=== PATIENT | male | born 1970 | race Caucasian/White ===

== ENCOUNTER 2017-04-25 10:15 | Emergency (ER) | payer MEDICARE ==
[~2017-04-25] VITALS: Ht 172.7 cm; Wt 84.8 kg
[2017-04-25 10:30] VITALS: BP_SYST 151
[2017-04-25] MEDS ORDERED: LIDOCAINE/EPI 2% 1:100000 20 ML VIAL INJ ONE (10:45)
[2017-04-25] MEDS ORDERED: HYDROcodone/ACETAMIN 5-325 MG TAB (NORCO/ VICODIN) PO ONE (10:45)
[2017-04-25] MEDS ORDERED: CEFAZOLIN 1 GM IVPB PREMIX 50 ML IV ONE (10:45)
[2017-04-25] MEDS ORDERED: LIDOCAINE/PRILOCAINE 5 GM CREAM (EMLA) TP ONE (10:45)
[2017-04-25] MEDS ORDERED: VANCOMYCIN HCL 1,000 MG in NS 250 ML IV ONE (10:45)
[2017-04-25 11:18] LABS: BASOPHILS # (AUTO) 0.1 K/uL (0.0-0.2); BASOPHILS % (AUTO) 1.2 % (0.0-2.0); EOSINOPHILS # (AUTO) 0.1 K/uL (0.0-0.4); EOSINOPHILS % (AUTO) 1.5 % (0.0-4.0); HEMATOCRIT 44.8 % (36-54); HEMOGLOBIN 13.9 g/dL (14.0-18.0); LYMPHOCYTES # (AUTO) 1.7 K/uL (1.0-5.5); LYMPHOCYTES % (AUTO) 19.3 % (20.5-51.5); MEAN CORPUSCULAR HEMOGLOBIN 26 pg (27-31); MEAN CORPUSCULAR HGB CONC 31 % (32-36); MEAN CORPUSCULAR VOLUME 83 fL (79.0-98.0); MONOCYTES # (AUTO) 0.8 K/uL (0.0-1.0); MONOCYTES % (AUTO) 8.5 % (1.7-9.3); NEUTROPHILS # (AUTO) 6.3 K/uL (1.8-7.7); NEUTROPHILS % (AUTO) 69.5 % (40.0-70.0); PLATELET COUNT (AUTO) 405 K/uL (130-430); RED CELL DISTRIBUTION WIDTH 12.6 % (9.0-15.0)
[2017-04-25 11:38] LABS: CALCIUM 9.6 mg/dL (8.4-11.0); CREATININE 0.86 mg/dL (0.55-1.30); POTASSIUM 3.5 mmol/L (3.5-5.1)
[2017-04-25 11:43] LABS: ALBUMIN 3.6 g/dL (3.4-4.8); TOTAL BILIRUBIN 0.7 mg/dL (0.0-1.0)
[2017-04-25 11:50] LABS: PROTHROMBIN TIME 9.9 SECS (9.5-12.5)
[2017-04-25] MEDS ORDERED: VANCOMYCIN HCL 1000 MG/VIAL IV ONE (12:35)
[2017-04-25] MEDS ORDERED: HYDROcodone/ACETAMIN 7.5-325 MG TAB PO ONE (14:45)
[2017-04-25] MEDS ORDERED: MORPHINE 4 MG/ML INJ. SYRINGE IVP ONE (14:45)
[2017-04-25] MEDS ORDERED: DIPHENHYDRAMINE INJ 50 MG/ML VIAL IVP ONE (14:45)
[2017-04-25 15:25] VITALS: BP_SYST 145
== END 2017-04-25 15:22 | disposition home or self-care (01) ==
LOC: SED 10:15
DX: L02.512 Cutaneous abscess of left hand (principal)
CPT/HCPCS: 10060; 36415; 73120; 80053; 83605; 85025; 85610; 87040; 96365; 96366; 96367; 96375; 99285; J0690; J1200; J2270; J3370; J7050

== ENCOUNTER 2018-06-04 00:07 | Emergency (ER) | payer BC, MEDICARE ==
[~2018-06-04] VITALS: Ht 172.7 cm; Wt 86.2 kg
[2018-06-04 00:39] VITALS: BP_SYST 164
[2018-06-04] MEDS ORDERED: LEVO100T9 PO (00:43)
--- NOTE | 2018-06-04 01:30 | NUR ---
Patient to ER bed 8 to gown for evaluation. Side rails up.
--- NOTE | 2018-06-04 01:32 | NUR ---
Patient arrived home [id number] complaining of leg pain and swelling and redness for about 1 week. Able to ambulate with a steady gait. Was taking antiobics for right leg swelling then left leg began swelling. Denies any cardiac issues, sob, chills, fever or N/V.
--- NOTE | 2018-06-04 02:30 | NUR ---
ER at bedside examining patient.
[2018-06-04] MEDS ORDERED: cefTRIAXone 1 GM IVPB PREMIX 50 ML IV ONE (02:45)
[2018-06-04] MEDS ORDERED: MORPHINE 4 MG/ML INJ. SYRINGE IVP ONE (02:45)
[2018-06-04 03:41] LABS: RED BLOOD CELL COUNT(AUTO) 4.63 MIL/uL (4.2-6.2); WHITE BLOOD COUNT (AUTO) 7.3 K/uL (4.8-10.8)
[2018-06-04 03:42] LABS: BASOPHILS % (AUTO) 1.1 % (0.0-2.0); EOSINOPHILS % (AUTO) 1.8 % (0.0-4.0); HEMATOCRIT 39.5 % (36-54); HEMOGLOBIN 12.9 g/dL (14.0-18.0); LYMPHOCYTES # (AUTO) 1.8 K/uL (1.0-5.5); LYMPHOCYTES % (AUTO) 25.2 % (20.5-51.5); MEAN CORPUSCULAR HEMOGLOBIN 28 pg (27-31); MEAN CORPUSCULAR HGB CONC 33 % (32-36); MEAN CORPUSCULAR VOLUME 85 fL (79.0-98.0); MONOCYTES % (AUTO) 11.9 % (1.7-9.3); NEUTROPHILS # (AUTO) 4.4 K/uL (1.8-7.7); PLATELET COUNT (AUTO) 393 K/uL (130-430); RED CELL DISTRIBUTION WIDTH 11.9 % (9.0-15.0)
[2018-06-04 03:43] LABS: BASOPHILS # (AUTO) 0.1 K/uL (0.0-0.2); EOSINOPHILS # (AUTO) 0.1 K/uL (0.0-0.4); MONOCYTES # (AUTO) 0.9 K/uL (0.0-1.0)
[2018-06-04 04:14] LABS: CALCIUM 9.3 mg/dL (8.4-11.0); POTASSIUM 4.9 mmol/L (3.5-5.1)
[2018-06-04 04:15] LABS: CREATININE 0.72 mg/dL (0.55-1.30); TOTAL BILIRUBIN 0.7 mg/dL (0.0-1.0)
[2018-06-04 04:44] LABS: C-REACTIVE PROTEIN QUANT 4.8 mg/dL (0-0.5)
--- NOTE | 2018-06-04 06:30 | NUR ---
Transfer accepted to [facility].
--- NOTE | 2018-06-04 07:00 | NUR ---
patient is resting in bed, with both eyes closed. patient responds to voice commands and easily waken. patient is in stable condition at this time.
--- NOTE | 2018-06-04 08:13 | NUR ---
code status confirmed with patient, pending MD signature.
--- NOTE | 2018-06-04 08:28 | NUR ---
Patient to be transferred to [facility]. Is being transferred due to insurance. Receiving facility has accepting physician and available space. ER physician has signed transfer form. Patient or responsible alliance party has agreed to transfer and signed form. Patient belongings inventoried and will be sent with patient. Copy of nursing notes, lab reports, EKG, Physicians Orders and X-rays to be sent with patient. Report called to Aishwarya at receiving facility. Receiving physician is MD Beltrán. [facility] has been called for transfer. ETA is [id number].
[2018-06-04 08:57] VITALS: BP_SYST 160
--- NOTE | 2018-06-04 08:58 | NUR ---
gave report to EMT, patient in route to new hospital in stable condition.
== END 2018-06-04 08:28 | disposition short-term general hospital (02) ==
LOC: SED 00:07
DX: L03.116 Cellulitis of left lower limb (principal)
CPT/HCPCS: 36415; 73590; 80053; 85025; 86140; 87040; 96365; 96375; 99285; J0696; J2270